=== PATIENT | female | born 1960 | race African-American/Black ===

== ENCOUNTER 2021-03-29 15:35 | Emergency (ER) | payer MEDICAID, OTHER ==
[~2021-03-29] VITALS: Ht 170.2 cm; Wt 100.0 kg
[2021-03-29 19:21] LABS: COVID AG,FIA SOURCE NASOPHARYNGEAL
[2021-03-29 19:25] LABS: BASOPHILS % (AUTO) 1.8 % (0.0-2.0); EOSINOPHILS % (AUTO) 5.8 % (1.0-6.0); HEMATOCRIT 43.6 % (36-46); HEMOGLOBIN 14.2 g/dL (12.0-16.0); LYMPHOCYTES # (AUTO) 2.3 K/uL (1.0-4.8); LYMPHOCYTES % (AUTO) 43.8 % (22.0-44.0); MEAN CORPUSCULAR HEMOGLOBIN 28.6 pg (26.0-34.0); MEAN CORPUSCULAR HGB CONC 32.5 G/dL (31.0-37.0); MEAN CORPUSCULAR VOLUME 88 fL (80-100); MONOCYTES # (AUTO) 0.5 K/uL (0.1-1.0); MONOCYTES % (AUTO) 9.8 % (2.0-9.0); NEUTROPHILS % (AUTO) 38.8 % (40.0-70.0); PLATELET COUNT (AUTO) 130 K/uL (150-450); RED BLOOD CELL COUNT(AUTO) 4.96 MIL/uL (4.00-5.20); RED CELL DISTRIBUTION WIDTH 14.2 % (11.5-14.5)
[2021-03-29 19:34] VITALS: BP 144/93
[2021-03-29 19:45] LABS: ANION GAP 6 mmol/L (8-16); CALCIUM, TOTAL 8.8 mg/dL (8.8-10.5); CARBON DIOXIDE 28 mmol/L (22-29); CHLORIDE 106 mmol/L (98-107); CREATININE 0.97 mg/dL (0.60-1.30); GLOMERULAR FILTR. RATE CALC > 60 mL/min (>60); GLUCOSE,RANDOM 95 mg/dL (70-110); POTASSIUM 3.9 mmol/L (3.5-5.1); SODIUM SERUM 140 mmol/L (136-145); UREA NITROGEN, BLOOD 14 mg/dL (7-18)
[2021-03-29 19:50] LABS: ALANINE AMINOTRANSFERASE 19 U/L (12-78); ALBUMIN 3.1 g/dL (3.4-5.0); ALKALINE PHOSPHATASE 99 U/L (46-116); ASPARTATE AMINOTRANSFERASE 19 U/L (15-37); BILIRUBIN,TOTAL 0.4 mg/dL (0.1-1.0); TOTAL PROTEIN, SERUM 7.7 g/dL (6.4-8.2)
== END 2021-03-29 21:00 | disposition home or self-care (01) ==
LOC: EMS 15:39
DX: U07.1 COVID-19 (principal); R53.1 Weakness; R19.7 Diarrhea, unspecified; F17.210 Nicotine dependence, cigarettes, uncomplicated; F12.90 Cannabis use, unspecified, uncomplicated
CPT/HCPCS: 80053; 85025; 99283

== ENCOUNTER 2021-04-06 10:34 | Emergency (ER) | payer MEDICAID ==
[~2021-04-06] VITALS: Ht 170.2 cm; Wt 100.0 kg
[2021-04-06 12:04] LABS: COVID AG,FIA SOURCE NASOPHARYNGEAL
[2021-04-06 12:19] VITALS: BP 145/65
== END 2021-04-06 14:19 | disposition home or self-care (01) ==
LOC: EMS 10:37
DX: Z20.822 Contact with and (suspected) exposure to COVID-19 (principal); F17.210 Nicotine dependence, cigarettes, uncomplicated; F12.90 Cannabis use, unspecified, uncomplicated
CPT/HCPCS: 99283

== ENCOUNTER 2021-05-21 04:58 | Emergency (ER) | payer MEDICAID ==
[~2021-05-21] VITALS: Ht 170.2 cm; Wt 100.0 kg
[2021-05-21] MEDS ORDERED: HYDROmorphone 2 MG/ML VIAL IM ONE (06:15)
[2021-05-21] MEDS ORDERED: ONDANSETRON HCL 4 MG/2 ML VIAL IM ONE (06:15)
[2021-05-21] MEDS ORDERED: KETOROLAC TROMETHAMINE 60 MG/2 ML VIAL IM ONE (06:15)
[2021-05-21 06:50] VITALS: BP 146/84
== END 2021-05-21 06:59 | disposition home or self-care (01) ==
LOC: EMS 04:59
DX: G89.29 Other chronic pain (principal); M54.50 Low back pain, unspecified; F12.90 Cannabis use, unspecified, uncomplicated; F17.210 Nicotine dependence, cigarettes, uncomplicated
CPT/HCPCS: 96372; 99283; J1170; J1885; J2405

== ENCOUNTER 2022-02-12 03:10 | Emergency (ER) | payer MEDICAID ==
[~2022-02-12] VITALS: Ht 167.6 cm; Wt 100.0 kg
[2022-02-12] MEDS ORDERED: HYDR30CR39 TP (06:20)
[2022-02-12 06:25] VITALS: BP 145/96
== END 2022-02-12 06:52 | disposition home or self-care (01) ==
LOC: EMS 03:14
DX: S50.362A Insect bite (nonvenomous) of left elbow, initial encounter (principal); F12.90 Cannabis use, unspecified, uncomplicated; F17.210 Nicotine dependence, cigarettes, uncomplicated; W57.XXXA Bitten or stung by nonvenomous insect and other nonvenomous arthropods, initial encounter; Y93.89 Activity, other specified; Y92.89 Other specified places as the place of occurrence of the external cause; Y99.8 Other external cause status
CPT/HCPCS: 99282; Z7502

== ENCOUNTER 2023-01-10 07:56 | Emergency (ER) | payer MEDICAID ==
[~2023-01-10] VITALS: Ht 170.2 cm; Wt 96.4 kg
[~2023-01-10 07:56] MED LIST: HYDR30CR39 TP
[2023-01-10 08:01] VITALS: BP 194/118; PULSE 92; RESP 18; TEMP 98.8
[2023-01-10] MEDS ORDERED: KETOROLAC TROMETHAMINE 30 MG/ML VIAL IM ONE (08:45)
[2023-01-10] MEDS ORDERED: IBUP-1492 PO (09:18)
[2023-01-10] MEDS ORDERED: ACET-3385 PO (09:18)
== END 2023-01-10 09:27 | disposition home or self-care (01) ==
LOC: EMS 07:56
DX: N63.32 Unspecified lump in axillary tail of the left breast (principal); F17.210 Nicotine dependence, cigarettes, uncomplicated; F12.90 Cannabis use, unspecified, uncomplicated
CPT/HCPCS: 99285; 96372; J1885

== ENCOUNTER 2023-11-02 10:42 | Emergency (ER) | payer MEDICAID ==
[~2023-11-02] VITALS: Ht 170.2 cm; Wt 84.1 kg
[~2023-11-02 10:42] MED LIST changes: +ACET-3385 PO; +IBUP-1492 PO
[2023-11-02 10:45] VITALS: TEMP 98.2
[2023-11-02 11:30] VITALS: PULSE 85; RESP 16; O2SAT 98
[2023-11-02] MEDS: ALBUTEROL SULFATE 2.5 MG/0.5 ML NEB SOLUTION NEB ONE (11:50)
[2023-11-02 11:57] LABS: COVID AG,FIA SOURCE NASAL SWAB
[2023-11-02 11:57] LABS: BASOPHILS % (AUTO) 1.5 % (0.0-2.0); HEMOGLOBIN 16.1 g/dL (12.0-16.0); LYMPHOCYTES # (AUTO) 2.2 K/uL (1.0-4.8); LYMPHOCYTES % (AUTO) 48.7 % (22.0-44.0); MEAN CORPUSCULAR HEMOGLOBIN 29.1 pg (26.0-34.0); MEAN CORPUSCULAR HGB CONC 33.6 G/dL (31.0-37.0); MEAN CORPUSCULAR VOLUME 87 fL (80-100); MONOCYTES # (AUTO) 0.6 K/uL (0.1-1.0); MONOCYTES % (AUTO) 13.3 % (2.0-9.0); NEUTROPHILS # (AUTO) 1.6 K/uL (1.8-7.7); NEUTROPHILS % (AUTO) 35.5 % (40.0-70.0); PLATELET COUNT (AUTO) 119 K/uL (150-450); RED BLOOD CELL COUNT(AUTO) 5.54 MIL/uL (4.00-5.20); RED CELL DISTRIBUTION WIDTH 15.4 % (11.5-14.5); WHITE BLOOD COUNT (AUTO) 4.5 K/uL (4.5-11.0)
[2023-11-02 12:03] LABS: CALCIUM, TOTAL 8.4 mg/dL (8.8-10.5); CREATININE 1.13 mg/dL (0.60-1.30); POTASSIUM 3.7 mmol/L (3.5-5.1)
[2023-11-02 12:09] LABS: ALBUMIN 2.8 g/dL (3.4-5.0); BILIRUBIN,TOTAL 0.3 mg/dL (0.1-1.0); TOTAL PROTEIN, SERUM 8.1 g/dL (6.4-8.2)
[2023-11-02 12:10] LABS: TROPONIN I-HIGH SENSITIVITY 22 ng/L (<51)
[2023-11-02 12:39] LABS: SARS-COV2 (COVID) ANTIGEN,FIA Negative (Negative)
[2023-11-02 12:40] LABS: INFLUENZA TYPE A NEGATIVE FOR TYPE A (NEGATIVE); INFLUENZA TYPE B NEGATIVE FOR TYPE B (NEGATIVE)
[2023-11-02 12:41] LABS: RESPIRATORY SYNCYTIAL VIRS,FIA NEGATIVE (Negative)
[2023-11-02] MEDS ORDERED: BENZ-227 PO (13:02)
[2023-11-02 13:20] VITALS: BP 126/73; PULSE 83; RESP 20
[2023-11-02] MEDS: ALBUTEROL SULFATE HFA 90 MCG/PUFF 8 GM INHALER IH ONE (13:21)
== END 2023-11-02 13:30 | disposition home or self-care (01) ==
LOC: EMS 10:58
DX: J40 Bronchitis, not specified as acute or chronic (principal); F12.90 Cannabis use, unspecified, uncomplicated; F17.210 Nicotine dependence, cigarettes, uncomplicated; Z20.822 Contact with and (suspected) exposure to COVID-19
CPT/HCPCS: 99285; 71045; 87426; 80053; 83880; 87420; 84484; 85025; 87804; 36415; 94640; 93005; J3535; J7613

== ENCOUNTER 2024-11-25 05:13 | Emergency (ER) | payer MEDICAID ==
[~2024-11-25] VITALS: Ht 170.2 cm; Wt 90.9 kg
[~2024-11-25 05:13] MED LIST changes: -ACET-3385 PO; +BENZ-227 PO; -HYDR30CR39 TP; -IBUP-1492 PO
[2024-11-25] MEDS ORDERED: LISINOPRIL PO (05:47)
[2024-11-25] MEDS: KETOROLAC TROMETHAMINE 60 MG/2 ML VIAL IM ONE (06:20)
[2024-11-25 06:28] LABS: BASOPHILS % (AUTO) 1.6 % (0.0-2.0); EOSINOPHILS % (AUTO) 7.5 % (1.0-6.0); HEMATOCRIT 41.6 % (36-46); LYMPHOCYTES # (AUTO) 1.9 K/uL (1.0-4.8); LYMPHOCYTES % (AUTO) 34.1 % (22.0-44.0); MEAN CORPUSCULAR HEMOGLOBIN 29.2 pg (26.0-34.0); MEAN CORPUSCULAR HGB CONC 33.7 G/dL (31.0-37.0); MEAN CORPUSCULAR VOLUME 87 fL (80-100); MONOCYTES # (AUTO) 0.4 K/uL (0.1-1.0); MONOCYTES % (AUTO) 7.5 % (2.0-9.0); NEUTROPHILS # (AUTO) 2.7 K/uL (1.8-7.7); NEUTROPHILS % (AUTO) 49.3 % (40.0-70.0); PLATELET COUNT (AUTO) 158 K/uL (150-450); RED BLOOD CELL COUNT(AUTO) 4.79 MIL/uL (4.00-5.20); WHITE BLOOD COUNT (AUTO) 5.5 K/uL (4.5-11.0)
[2024-11-25 06:44] LABS: ANION GAP 6 mmol/L (8-16); CALCIUM, TOTAL 8.4 mg/dL (8.8-10.5); CARBON DIOXIDE 29 mmol/L (22-29); CHLORIDE 105 mmol/L (98-107); CREATININE 1.06 mg/dL (0.60-1.30); GLOMERULAR FILTR. RATE CALC > 60 mL/min (>60); GLUCOSE,RANDOM 112 mg/dL (70-110); POTASSIUM 4.1 mmol/L (3.5-5.1); SODIUM SERUM 140 mmol/L (136-145); UREA NITROGEN, BLOOD 15 mg/dL (7-18)
[2024-11-25 06:48] LABS: ALBUMIN 2.8 g/dL (3.4-5.0); BILIRUBIN,DIRECT 0.1 mg/dL (0.00-0.20); BILIRUBIN,TOTAL 0.3 mg/dL (0.1-1.0); TOTAL PROTEIN, SERUM 7.2 g/dL (6.4-8.2)
[2024-11-25 06:53] LABS: TROPONIN I-HIGH SENSITIVITY 18 ng/L (<51)
[2024-11-25] MEDS ORDERED: IBUP-1492 PO (07:35)
[2024-11-25] MEDS ORDERED: PERCT PO (07:35)
[2024-11-25] MEDS: OxyCODONE HCL/ACETAMINOPHEN 5-325 MG TABLET PO ONE (07:43)
[2024-11-25 08:00] VITALS: BP 145/90; PULSE 56; RESP 18; TEMP 97.71051242048; O2SAT 100
== END 2024-11-25 08:17 | disposition home or self-care (01) ==
LOC: EMS 05:16
DX: D17.1 Benign lipomatous neoplasm of skin and subcutaneous tissue of trunk (principal); I10 Essential (primary) hypertension; F17.210 Nicotine dependence, cigarettes, uncomplicated; F12.90 Cannabis use, unspecified, uncomplicated
CPT/HCPCS: 99285; 71045; 80048; 80076; 84484; 85025; 36415; 93005; 96372; J1885; 99284

== ENCOUNTER 2025-06-11 03:05 | Emergency (ER) | payer MEDICAID ==
[~2025-06-11] VITALS: Ht 170.2 cm; Wt 90.9 kg
[~2025-06-11 03:05] MED LIST changes: -BENZ-227 PO; +IBUP-1492 PO; +LISINOPRIL PO; +PERCT PO
[2025-06-11 03:12] VITALS: TEMP 97.5
[2025-06-11 03:24] LABS: APPEARANCE,URINE CLEAR (CLEAR); GLUCOSE, URINE (UA) NEGATIVE (NEGATIVE); LEUKOCYTE ESTERASE ,URINE NEGATIVE (NEGATIVE); NITRATE,URINE NEGATIVE (NEGATIVE); OCCULT BLOOD,URINE NEGATIVE (NEGATIVE); SPECIFIC GRAVITIY, URINE 1.011 (1.003-1.030)
[2025-06-11 04:23] LABS: PLATELET COUNT (AUTO) 156 K/uL (150-450); RED BLOOD CELL COUNT(AUTO) 4.34 MIL/uL (4.00-5.20); RED CELL DISTRIBUTION WIDTH 15.3 % (11.5-14.5); WHITE BLOOD COUNT (AUTO) 6.6 K/uL (4.5-11.0)
[2025-06-11 04:30] LABS: CALCIUM, TOTAL 8.6 mg/dL (8.8-10.5); CREATININE 0.98 mg/dL (0.60-1.30); GLOMERULAR FILTR. RATE CALC > 60 mL/min (>60); GLUCOSE,RANDOM 107 mg/dL (70-110); SODIUM SERUM 139 mmol/L (136-145); UREA NITROGEN, BLOOD 14 mg/dL (7-18)
[2025-06-11 04:40] VITALS: BP 179/86; PULSE 63; RESP 16; O2SAT 99
[2025-06-11] MEDS ORDERED: TRAM50TA5 PO (05:14)
[2025-06-11] MEDS ORDERED: POLY119P3 PO (05:14)
== END 2025-06-11 05:32 | disposition home or self-care (01) ==
LOC: EMS 03:16
DX: K59.00 Constipation, unspecified (principal); I10 Essential (primary) hypertension; F17.210 Nicotine dependence, cigarettes, uncomplicated; F12.90 Cannabis use, unspecified, uncomplicated; Z79.899 Other long term (current) drug therapy
CPT/HCPCS: 74018; 80048; 81003; 85025; 99284; 36415-L1; 36415-TC